=== PATIENT | male | born 1960 ===

== ENCOUNTER 2018-12-17 19:45 | Observation (INO) | payer OTHER ==
[2018-12-17] MEDS ORDERED: Sodium Chloride 0.9% 1,000 ML IV STA (21:12)
--- NOTE | 2018-12-17 21:48 | ED PDOC ---
HPI: Psych/Substance Abuse Time Seen by Provider: 12/17/18 19:58 Chief Complaint (Nursing): Alcohol Ingestion Chief Complaint (Provider): Alcohol Ingestion ED Caveat: Intoxicated History Per: Patient History/Exam Limitations: intoxication Current Symptoms Are (Timing): Still Present Modifying Factor(s): Alcohol Additional Complaint(s): 55 year old male with a history of alcohol abuse presents to the ED via EMS with alcohol intoxication. Patient admits to drinking alcohol today. He also had several episodes of vomiting associated mild upper abdominal pain. Patient also has IDDM, but has not taken insulin in 2 days. Patient is actively vomiting in ED. PMD: none provided Past Medical History Reviewed: Historical Data, Nursing Documentation, Vital Signs Vital Signs: Last Vital Signs Temp 97.4 F L 12/17/18 19:51 Pulse 97 H 12/17/18 19:51 Resp 18 12/17/18 19:51 BP 132/86 12/17/18 19:51 Pulse Ox 99 12/17/18 19:51 - Medical History PMH: Diabetes - Family History Family History: States: Unknown Family Hx - Social History Alcohol: Other (yes, alcohol abuse) - Allergies Allergies/Adverse Reactions: Allergies Allergy/AdvReac Type Severity Reaction Status Date / Time No Known Allergies Allergy Verified 12/17/18 19:50 Review of Systems ROS Statement: Except As Marked, All Systems Reviewed And Found Negative Gastrointestinal: Positive for: Vomiting, Abdominal Pain Physical Exam - Reviewed Nursing Documentation Reviewed: Yes Vital Signs Reviewed: Yes - Physical Exam Appears: Positive for: No Acute Distress Head Exam: Positive for: ATRAUMATIC, NORMOCEPHALIC Skin: Positive for: Normal Color, Warm, Dry Eye Exam: Positive for: Normal appearance, EOMI, PERRL Cardiovascular/Chest: Positive for: Regular Rate, Rhythm Respiratory: Positive for: Normal Breath Sounds. Negative for: Respiratory Distress Gastrointestinal/Abdominal: Positive for: Normal Exam, Soft. Negative for: Tenderness, Guarding Extremity: Positive for: Normal ROM (upper and lower). Negative for: Pedal Edema, Deformity Neurological/Psych: Positive for: Awake, Alert, Oriented - Laboratory Results Result Diagrams: 12/17/18 21:40 12/17/18 21:40 - ECG O2 Sat by Pulse Oximetry: 99 (RA) Pulse Ox Interpretation: Normal Medical Decision Making Medical Decision Making: Time: 2111 Plan: --fluids --alcohol level --Zofran --Pepcid Pt. resting comfortably, abd. soft/nt. Labs noted, hgb 8.5, etoh >250. Will continue IV hydration and repeat labs and assessment when sober. Pt. endorsed to CRISTIANO Montana 11:30 pm. -- Scribe Attestation: Documented by Vera Greer acting as a scribe for Rosana Layton PA-C. Provider Scribe Attestation: All medical record entries made by the Scribe were at my direction and personally dictated by me. I have reviewed the chart and agree that the record accurately reflects my personal performance of the history, physical exam, medical decision making, and the department course for this patient. I have also personally directed, reviewed, and agree with the discharge instructions and disposition. Disposition - Clinical Impression Clinical Impression: Alcohol abuse, Vomiting - Patient ED Disposition Is Patient to be Admitted: Transfer of Care (CRISTIANO Montana) - Disposition Disposition: Transfer of Care (to CRISTIANO Montana at 11:30pm) Disposition Time: 23:25 Condition: STABLE Forms: [employer] (Eritrean)
[2018-12-17 21:51] LABS: BASO % 0.6 % (0.0-2.0); EOS # 0.1 K/uL (0.0-0.7); EOS % 1.8 % (0.0-4.0); HEMOGLOBIN 8.2 g/dL (12.0-18.0); LYMPH % 26.4 % (20.0-40.0); MEAN CELL VOLUME 88.7 fl (80.0-94.0); MEAN CORPUSCULAR HEMOGLOBIN 29.1 pg (27.0-31.0); MEAN CORPUSCULAR HGB CONC 32.8 g/dL (33.0-37.0); MEAN PLATELET VOLUME 7.1 fl (7.2-11.7); MONO # 0.3 K/uL (0.0-0.8); NEUT # 2.3 K/uL (1.8-7.0); NEUT % 63.2 % (50.0-75.0); NRBC % 0.1 % (0.0-0.0); RBC 2.84 Mil/uL (4.40-5.90); RED CELL DISTRIBUTION WIDTH 17.2 % (11.5-14.5); WHITE BLOOD COUNT 3.7 K/uL (4.8-10.8)
[2018-12-17 22:07] LABS: ALBUMIN 3.4 g/dL (3.5-5.0); ALT/SGPT 18 U/L (21-72); AST/SGOT 23 U/L (17-59); BLOOD UREA NITROGEN 12 mg/dl (9-20); CALCIUM 8.6 mg/dL (8.4-10.2); GFR NON-AFRICAN AMERICAN > 60; LIPASE 130 U/L (23-300)
--- NOTE | 2018-12-18 00:04 | ED PDOC ---
- Laboratory Results Result Diagrams: 12/17/18 21:40 12/17/18 21:40 Lab Results: Total Bilirubin 0.3 mg/dl (0.2-1.3) 12/17/18 21:40 AST 23 U/L (17-59) 12/17/18 21:40 ALT 18 U/L (21-72) L 12/17/18 21:40 Alkaline Phosphatase 68 U/L (38-126) 12/17/18 21:40 Total Protein 6.9 G/DL (6.3-8.2) 12/17/18 21:40 Albumin 3.4 g/dL (3.5-5.0) L 12/17/18 21:40 Globulin 3.4 gm/dL (2.2-3.9) 12/17/18 21:40 Albumin/Globulin Ratio 1.0 (1.0-2.1) 12/17/18 21:40 Lipase 130 U/L (23-300) 12/17/18 21:40 - ECG O2 Sat by Pulse Oximetry: 99 (RA) Medical Decision Making Medical Decision Making: Pt care assumed from Cherise Layton at [id number]; the patient was evaluated by myself and found to be nearing sobriety but with difuse abdominal pain A CT Abd and Pelvis with IV Conrast was ordered 0005- A discussion was had with the patient along with the neon technician to explain the rationale underlying the study as well as the risks and benefits of the study. The patient repeated back his understanding of the conversation, the procedure and the underlying rationale to the satisfaction of the provider and the operations and maintenance technician 01:36 CT abd/pelvis Bilateral basilar hypoventilatory pulmonary changes. Moderate hiatal hernia. Moderate cardiomegaly. Mild enlarged retroperitoneal lymph nodes with the largest measuring 1.3 cm. Mildly enlarged bilateral pelvic lymph nodes with the largest measuring 1.6 cm. Mildly enlarged bilateral inguinal lymph nodes with the largest measuring 2.7 cm. Mildly hyperdense material is noted in the proximal aspect of the sigmoid colon. Uncomplicated colonic diverticulosis. Mild changes of central mesenteric panniculitis. Cholelithiasis without acute cholecystitis. Distended bladder. Mild bilateral fullness of the collecting systems. The liver is of uniform attenuation without mass or defect. There is no intra or extrahepatic biliary ductal dilatation. The spleen is normal. The pancreas is of normal contour and attenuation characteristics. There is no evidence of adrenal mass. Both kidneys demonstrate prompt and equal nephrograms. The kidneys are normal in size, shape and configuration. There is no evidence of renal or ureteral mass. No renal or ureteral calculi are identified. No evidence for appendicitis. There is no bowel wall thickening. No evidence for small or large bowel obstruction. There is no evidence of intrinsic or extrinsic bladder mass. Images of the lung bases show no evidence of pleural or parenchymal mass. There are no pleural effusions. The bony structures are free of lytic or blastic lesions. IMPRESSION: Bilateral basilar hypoventilatory pulmonary changes. Moderate hiatal hernia. Moderate cardiomegaly. Mild enlarged retroperitoneal lymph nodes with the largest measuring 1.3 cm. Mildly enlarged bilateral pelvic lymph nodes with the largest measuring 1.6 cm. Mildly enlarged bilateral inguinal lymph nodes with the largest measuring 2.7 cm. Mildly hyperdense material is noted in the proximal aspect of the sigmoid colon. This may represent contrast administration or can be secondary to the presence of acute/subacute hemorrhagic products in the lumen of the proximal sigmoid. Uncomplicated colonic diverticulosis. Mild changes of central mesenteric panniculitis. Cholelithiasis without acute cholecystitis. Distended bladder. Mild bilateral fullness of the collecting systems. 0200 - based on clinical impression and CT diagnostic, the patient will be transfused and admitted to Tele - consulted with Dr Healy, Hospitalist and the patient will be admitted to his service - type and screen ordered - patient verbally consented to a transfusion; -pt is inebriated but stable 0205 - patient is still showing signs of inebriation and refuses to rakesh consent to a transfusion. Disposition Discussed With : Chris Healy Doctor Will See Patient In The: Hospital Counseled Patient/Family Regarding: Diagnosis, Need For Followup - Clinical Impression Clinical Impression: Alcohol abuse, Vomiting, GI bleed, Cholelithiasis - POA Present On Arrival: None - Disposition Disposition: Admitted as In-Patient Disposition Time: 02:20 Condition: FAIR
[2018-12-18] MEDS ORDERED: Sodium Chloride 0.9% 50 ML IV ONE (00:14)
[2018-12-18] MEDS ORDERED: Iohexol 300 100 ML IJ ONE (00:14)
[2018-12-18] MEDS ORDERED: Multivitamin (MVI) 10 ML, Thiamine 100 MG, Folic Acid 1 MG in Sodium Chloride 0.9% 1,00... IV ONE (03:06)
--- NOTE | 2018-12-18 03:23 | CP.PCM.HP ---
<Andrzej Paredes - Last Filed: 12/18/18 04:19> History of Present Illness - History of Present Illness History of Present Illness: 55 y/o M with a PMHx of HTN, DM, b/l lower leg venous insufficiency and alcohol abuse was brought to ED via EMS due to alcohol intoxication. Pt had multiple epi sodes of non-bloody vomiting in the ED. Pt more awake, admits to drinking alcohol before being brought to ED. Pt c/o of mild epigastric pain which improved after medications. Pt also reports constant b/l lower leg pain, pt frequently goes to wound care appointments for dressing change and wound jonny gement. --Pt reports episodes on coffee-ground emesis in the past, last episode 1 or 2 weeks ago. Endoscopy studies have been offered in the past but pt has declined them. Pt also reports chronic Hx of anemia, being offered blood transfusions; however, he declines it and ends up obtaining IV Iron. --Pt reports chronic Hx of diarrhea but denies any blood in or dark/black stools. PMD: none NKDA Meds: unable to recall all of them, non-adherent. PMHx: HTN, DM, b/l lower leg venous insufficiency, alcohol abuse, C Diff infection. PSHX: denied SHx: Pt drinks ~4 beers and 1 bottle of Vodka every other day. Pt smokes cigars once a week. No rec drugs. Pt lives with brother. ED Course: --Vital signs WNL --CBC shows normocytic anemia and leukopenia. CMP was unremarkable, LFT was wnl. --Serum alcohol 272-high. --CT Abdomen: Moderate hiatal hernia. Moderate cardiomegaly. Mild lymphadenopathy in retroperitoneal, bilateral pelvic and bilateral inguinal lymph nodes. Mildly hyperdense material in the proximal aspect of the sigmoid colon which could be secondary to the presence of acute/subacute hemorrhagic products in the lumen of the proximal sigmoid. Uncomplicated colonic diverticulosis. --Famotidine, Zofran, 1L NSS were administered Present on Admission - Present on Admission Any Indicators Present on Admission: No Urinary Catheter: No Decubitus Ulcer Present: No Review of Systems - Constitutional Constitutional: absent: Anorexia, Chills, Fever - EENT Eyes: absent: Blurred Vision Nose/Mouth/Throat: absent: Nasal Congestion, Tongue Swelling, Neck Pain, Neck Mass - Cardiovascular Cardiovascular: Leg Edema. absent: Chest Pain, Dyspnea, Palpitations - Respiratory Respiratory: absent: Cough, Dyspnea, Hemoptysis - Gastrointestinal Gastrointestinal: Abdominal Pain, Diarrhea, Nausea, Vomiting. absent: Bloating - Genitourinary Genitourinary: absent: Dysuria, Hematuria, Urinary Incontinence, Urinary Frequency Past Patient History - Past Social History Alcohol: Other (yes, alcohol abuse) - PSYCHIATRIC Hx Substance Use: No Meds Allergies/Adverse Reactions: Allergies Allergy/AdvReac Type Severity Reaction Status Date / Time No Known Allergies Allergy Verified 12/17/18 19:50 Physical Exam - Constitutional Appears: No Acute Distress - Head Exam Head Exam: ATRAUMATIC, NORMOCEPHALIC - Eye Exam Eye Exam: EOMI - ENT Exam ENT Exam: Mucous Membranes Dry - Neck Exam Neck exam: Positive for: Full Rom, Normal Inspection. Negative for: Meningismus - Respiratory Exam Respiratory Exam: NORMAL BREATHING PATTERN. absent: Decreased Breath Sounds, Rhonchi, Wheezes, Respiratory Distress - Cardiovascular Exam Cardiovascular Exam: REGULAR RHYTHM, +S1, +S2 - GI/Abdominal Exam GI & Abdominal Exam: Normal Bowel Sounds, Soft, Tenderness (epigastric area). absent: Distended, Guarding, Rebound, Rigid - Extremities Exam Extremities exam: Positive for: full ROM, pedal edema Additional comments: Both lower legs are wrapped in dirty malodorous dressings. Presence of diffuse erythematous dermatitis in b/l lower legs. Presence on an ulcer on medial pre- tibial area, and crusted lesion on R medial foot. Results - Vital Signs Recent Vital Signs: Last Vital Signs Temp 98 F 12/18/18 03:04 Pulse 89 12/18/18 03:04 Resp 16 12/18/18 03:04 BP 115/80 12/18/18 03:04 Pulse Ox 98 12/18/18 03:04 - Labs Result Diagrams: 12/17/18 21:40 12/17/18 21:40 Labs: Laboratory Results - last 24 hr 12/17/18 12/17/18 12/17/18 21:40 21:40 21:40 WBC 3.7 L RBC 2.84 L Hgb 8.2 L Hct 25.2 L MCV 88.7 MCH 29.1 MCHC 32.8 L RDW 17.2 H Plt Count 172 MPV 7.1 L Neut % (Auto) 63.2 Lymph % (Auto) 26.4 Weston % (Auto) 8.0 Eos % (Auto) 1.8 Baso % (Auto) 0.6 Neut # (Auto) 2.3 Lymph # (Auto) 1.0 Weston # (Auto) 0.3 Eos # (Auto) 0.1 Baso # (Auto) 0.0 Sodium 141 Potassium 3.9 Chloride 109 H Carbon Dioxide 20 L Anion Gap 16 BUN 12 Creatinine 0.7 L Est GFR ( Amer) > 60 Est GFR (Non-Af Amer) > 60 Random Glucose 106 Calcium 8.6 Total Bilirubin 0.3 AST 23 ALT 18 L Alkaline Phosphatase 68 Total Protein 6.9 Albumin 3.4 L Globulin 3.4 Albumin/Globulin Ratio 1.0 Lipase 130 Alcohol, Quantitative 272 H Blood Type Antibody Screen Crossmatch BBK History Checked 12/18/18 02:10 WBC RBC Hgb Hct MCV MCH MCHC RDW Plt Count MPV Neut % (Auto) Lymph % (Auto) Weston % (Auto) Eos % (Auto) Baso % (Auto) Neut # (Auto) Lymph # (Auto) Weston # (Auto) Eos # (Auto) Baso # (Auto) Sodium Potassium Chloride Carbon Dioxide Anion Gap BUN Creatinine Est GFR ( Amer) Est GFR (Non-Af Amer) Random Glucose Calcium Total Bilirubin AST ALT Alkaline Phosphatase Total Protein Albumin Globulin Albumin/Globulin Ratio Lipase Alcohol, Quantitative Blood Type B POSITIVE Antibody Screen Negative Crossmatch See Detail BBK History Checked No verified bt Assessment & Plan - Assessment and Plan (Free Text) Assessment: 55 y/o M with a PMHx of HTN, DM, b/l lower leg venous insufficiency and alcohol abuse is admitted for evaluation and management of alcohol intoxication, anemia, and CT findings of GI hemorrhage. --CT Abdomen: Moderate hiatal hernia. Moderate cardiomegaly. Mild lymphadenopathy in retroperitoneal, bilateral pelvic and bilateral inguinal lymph nodes. Mildly hyperdense material in the proximal aspect of the sigmoid colon which could be secondary to the presence of acute/subacute hemorrhagic products in the lumen of the proximal sigmoid. Uncomplicated colonic diverticulosis. PLAN: >GI Hemorrhage --VS stable, Hgb 8.2-low, normal LFT. --Hx of upper GI bleeding and alcohol abuse --Blood transfusion declined by patient, form signed by bedside. --NPO --QT prolongation on EKG at ED: Restrict Zofran/metoclopramide use. --TRIMETHOBENZAMIDE (Tigan) ordered for nausea. --GI consult, Dr Ramey. --F/U Repeat CBC, Cdiff screen and FOBT. >Alcohol intoxication/abuse --Increased serum alcohol at ED, normal LFT's. --Observe for alcohol withdrawal syndrome --Banana Bag --Librium 25mg Q8H --[facility] protocol --Ativan IV PRN --F/U repeat alcohol level. >Normocytic anemia --Hgb 8.2-low, MCV 88.7, RDW 17.2 --Possible causes: acute GI bleeding, Malnutrition/vitamin or mineral deficiencies, Hx of alcoholism, combined etiology. --Blood transfusion declined. --Anemia work-up ordered: iron studies, vitamin B12, folate, retic count. >DM2 --Not sure about diagnosis, since pt --Hemoglobin A1c ordered. --Accucheck ACHS --ISS and hypoglycemia protocol >HTN --Monitor vital signs >B/L Lower Leg Venous Insufficiency --Wound care nurse referral ordered. >DVT prophylaxis --NO SCD due to lower leg dermatitis --NO anticoagulation since possible GI bleeding Case discussed with Negni Paz PGY-2 - Date & Time Date: 12/18/18 Time: 03:00 <Chris Healy - Last Filed: 12/18/18 06:34> Results - Vital Signs Recent Vital Signs: Last Vital Signs Temp 97.3 F L 12/18/18 03:34 Pulse 84 12/18/18 03:34 Resp 17 12/18/18 03:34 BP 146/79 12/18/18 03:34 Pulse Ox 96 12/18/18 03:34 - Labs Result Diagrams: 12/18/18 05:20 12/18/18 05:20 Labs: Laboratory Results - last 24 hr 12/17/18 12/17/18 12/17/18 21:40 21:40 21:40 WBC 3.7 L RBC 2.84 L Hgb 8.2 L Hct 25.2 L MCV 88.7 MCH 29.1 MCHC 32.8 L RDW 17.2 H Plt Count 172 MPV 7.1 L Neut % (Auto) 63.2 Lymph % (Auto) 26.4 Weston % (Auto) 8.0 Eos % (Auto) 1.8 Baso % (Auto) 0.6 Neut # (Auto) 2.3 Lymph # (Auto) 1.0 Weston # (Auto) 0.3 Eos # (Auto) 0.1 Baso # (Auto) 0.0 PT INR Sodium 141 Potassium 3.9 Chloride 109 H Carbon Dioxide 20 L Anion Gap 16 BUN 12 Creatinine 0.7 L Est GFR ( Amer) > 60 Est GFR (Non-Af Amer) > 60 Random Glucose 106 Calcium 8.6 Total Bilirubin 0.3 AST 23 ALT 18 L Alkaline Phosphatase 68 Total Protein 6.9 Albumin 3.4 L Globulin 3.4 Albumin/Globulin Ratio 1.0 Lipase 130 Alcohol, Quantitative 272 H Blood Type Antibody Screen Crossmatch BBK History Checked 12/18/18 12/18/18 02:10 05:20 WBC RBC Hgb Hct MCV MCH MCHC RDW Plt Count MPV Neut % (Auto) Lymph % (Auto) Weston % (Auto) Eos % (Auto) Baso % (Auto) Neut # (Auto) Lymph # (Auto) Weston # (Auto) Eos # (Auto) Baso # (Auto) PT 11.2 INR 1.0 Sodium Potassium Chloride Carbon Dioxide Anion Gap BUN Creatinine Est GFR ( Amer) Est GFR (Non-Af Amer) Random Glucose Calcium Total Bilirubin AST ALT Alkaline Phosphatase Total Protein Albumin Globulin Albumin/Globulin Ratio Lipase Alcohol, Quantitative Blood Type B POSITIVE Antibody Screen Negative Crossmatch See Detail BBK History Checked No verified bt Attending/Attestation - Attestation I have personally seen and examined this patient.: Yes I have fully participated in the care of the patient.: Yes I have reviewed all pertinent clinical information: Yes Notes (Text): 12/18/18 06:10 I saw, examined and discussed this patient with Dr Paredes. I agree with the assessment and plan outlined. This is a 55 years old male with hx of Alcohol abuse, Chronic Stasis dermatitis of the lower extremities, IDDM, recent C Difficile (treated with Oral vancomycina and Flagyl), who was brought to the ED because of Alcohol intoxication and vomiting. He complains of epigastric pain and painful lower extremities. No hematemesis at this time although he refers to previous episodes of the same. No melena nor blood visible in stool. CT Abdomen/Pelvis showed Diverticulosis, Cholelithisasis and mild hyperdense material in the proximal sigmoid colon which may represent contrast adm inistration or can be secondary to the presence of acute/subacute hemorrhagic products in the lumen of the proximal sigmoid. We will consider that the patient has GI bleed, and will only order medication by mouth, consult gastroenterology Dr Ramey for possible Endoscopy and colonoscopy. H&H Q6 The patient states that he will refuse endoscopy Continue Protonix and IV Fluid Alcohol Intoxication and prevention of withdrawal with Librium, IV Ativan for agitation, thiamine, Folic Acid and multivitamin with a [facility] protocol Anemia work up and treatment Diarrhea will be investigated with C Difficile Toxins and antigen Chronic Stasis Dermatitis at both lower extremities will be attended to by the wound care nurse Chris Healy MD
[2018-12-18] MEDS ORDERED: Trimethobenzamide 200 mg/2 mL Inj IM PRN (03:58)
[2018-12-18] MEDS ORDERED: Glucagon Recombinant 1 mg Inj IM PRN (04:11)
[2018-12-18] MEDS ORDERED: Dextrose 50% SYRINGE Inj (50 ml) IV PRN (04:11)
[2018-12-18 06:06] LABS: HEMOGLOBIN 8.7 g/dL (12.0-18.0); MEAN CELL VOLUME 86.9 fl (80.0-94.0); MEAN CORPUSCULAR HEMOGLOBIN 29.1 pg (27.0-31.0); MEAN CORPUSCULAR HGB CONC 33.5 g/dL (33.0-37.0); RBC 2.97 Mil/uL (4.40-5.90); RED CELL DISTRIBUTION WIDTH 17.1 % (11.5-14.5)
[2018-12-18 06:10] LABS: BLOOD UREA NITROGEN 9 mg/dl (9-20); CALCIUM 8.5 mg/dL (8.4-10.2); GFR NON-AFRICAN AMERICAN > 60
[2018-12-18 06:12] LABS: IRON 33 ug/dL (49-181)
[2018-12-18 06:21] LABS: % IRON SATURATION 13 % (20-55); TOTAL IRON BINDING CAPACITY 263 ug/dL (250-450)
[2018-12-18] MEDS: Insulin Lispro (humaLOG) 100 Units/ml Inj SC SCH ×2 (06:28→12:42)
[2018-12-18 06:38] LABS: FERRITIN 40.8 ng/Ml (17.9-464)
[2018-12-18 08:36] VITALS: RESP 20
--- NOTE | 2018-12-18 08:38 | CT ---
Date of service: 12/18/2018 PROCEDURE: CT Abdomen and Pelvis with contrast HISTORY: r/o gi bleed COMPARISON: None. TECHNIQUE: Intravenous contrast dose: 95 cc Omnipaque 300 Radiation dose: Total exam DLP = 576.63 mGy-cm. This CT exam was performed using one or more of the following dose reduction techniques: Automated exposure control, adjustment of the mA and/or kV according to patient size, and/or use of iterative reconstruction technique. FINDINGS: LOWER THORAX: Thickened distal esophagus likely esophagitis without focal lesion. LIVER: Unremarkable. No gross lesion or ductal dilatation. GALLBLADDER AND BILE DUCTS: Cholelithiasis without CT evidence of acute cholecystitis. PANCREAS: Unremarkable. No gross lesion or ductal dilatation. SPLEEN: Unremarkable. ADRENALS: Unremarkable. No mass. KIDNEYS AND URETERS: Unremarkable. No hydronephrosis. No solid mass. VASCULATURE: Unremarkable. No aortic aneurysm. No atherosclerotic calcification or mural plaque present. BOWEL: Unremarkable. No obstruction. No gross mural thickening. APPENDIX: Normal appendix. PERITONEUM: Unremarkable. No free fluid. No free air. LYMPH NODES: Inguinal lymphadenopathy bilaterally the extent is not visible on the current study. Substantially smaller pelvic lymph nodes likely infectious/inflammatory. BLADDER: Distended urinary bladder without focal abnormality. REPRODUCTIVE: Unremarkable. BONES: No acute fracture. OTHER FINDINGS: None. IMPRESSION: Bilateral inguinal lymphadenopathy etiology uncertain. Thickening of the distal esophagus likely esophagitis. Cholelithiasis without CT evidence of acute cholecystitis. Concordant results (preliminary interpretation) provided by [employer]. Procedure Completed: 00:25. Preliminary Report: Interpreted and electronically signed: 01:37. Final Interpretation: 08:34.
--- NOTE | 2018-12-18 12:18 | CP.PCM.DIS ---
Provider - Provider Date of Admission: 12/18/18 02:12 Attending physician: Chris Healy Consults: 12/18/18 02:12 Gastroenterology Consult Stat Comment: Consulting Provider: Richard Ramey Consulting Physician: Richard Ramey Reason for Consult: GI bleed 12/18/18 03:49 Nursing Referral for Wound Care Routine Comment: Physician Instructions: Reason For Exam: Bilateral lower leg venous stasis dermatitis 12/18/18 05:13 Nursing Referral for Wound Care Routine Comment: Physician Instructions: Reason For Exam: please evaluate BLE, sacral, and perineal area. Social Work Referral Routine Comment: alcohol abuse Physician Instructions: Reason For Exam: as per admission assessment Time Spent in preparation of Discharge (in minutes): 20 Diagnosis - Discharge Diagnosis (1) Diabetes mellitus type 2 in nonobese Status: Chronic (2) Alcohol abuse Status: Chronic (3) Normocytic anemia Status: Chronic (4) Lower extremity venous stasis Status: Chronic (5) HTN (hypertension) Status: Chronic Hospital Course - Lab Results Lab Results: Most Recent Lab Values WBC 3.0 K/uL (4.8-10.8) L 12/18/18 05:20 RBC 2.97 Mil/uL (4.40-5.90) L 12/18/18 05:20 Hgb 8.7 g/dL (12.0-18.0) L 12/18/18 05:20 Hct 25.8 % (35.0-51.0) L 12/18/18 05:20 MCV 86.9 fl (80.0-94.0) 12/18/18 05:20 MCH 29.1 pg (27.0-31.0) 12/18/18 05:20 MCHC 33.5 g/dL (33.0-37.0) 12/18/18 05:20 RDW 17.1 % (11.5-14.5) H 12/18/18 05:20 Plt Count 156 K/uL (130-400) 12/18/18 05:20 MPV 7.1 fl (7.2-11.7) L 12/17/18 21:40 Neut % (Auto) 63.2 % (50.0-75.0) 12/17/18 21:40 Lymph % (Auto) 26.4 % (20.0-40.0) 12/17/18 21:40 Whitley % (Auto) 8.0 % (0.0-10.0) 12/17/18 21:40 Eos % (Auto) 1.8 % (0.0-4.0) 12/17/18 21:40 Baso % (Auto) 0.6 % (0.0-2.0) 12/17/18 21:40 Neut # (Auto) 2.3 K/uL (1.8-7.0) 12/17/18 21:40 Lymph # (Auto) 1.0 K/uL (1.0-4.3) 12/17/18 21:40 Whitley # (Auto) 0.3 K/uL (0.0-0.8) 12/17/18 21:40 Eos # (Auto) 0.1 K/uL (0.0-0.7) 12/17/18 21:40 Baso # (Auto) 0.0 K/uL (0.0-0.2) 12/17/18 21:40 Retic Count 2.4 % (0.5-1.5) H 12/18/18 05:20 PT Cancelled 12/18/18 05:20 INR Cancelled 12/18/18 05:20 APTT Cancelled 12/18/18 05:20 Sodium 144 mmol/l (132-148) 12/18/18 05:20 Potassium 4.4 MMOL/L (3.6-5.0) 12/18/18 05:20 Chloride 113 mmol/L (98-107) H 12/18/18 05:20 Carbon Dioxide 22 mmol/L (22-30) 12/18/18 05:20 Anion Gap 13 (10-20) 12/18/18 05:20 BUN 9 mg/dl (9-20) 12/18/18 05:20 Creatinine 0.7 mg/dl (0.8-1.5) L 12/18/18 05:20 Est GFR ( Amer) > 60 12/18/18 05:20 Est GFR (Non-Af Amer) > 60 12/18/18 05:20 POC Glucose (mg/dL) 75 mg/dL (65-110) 12/18/18 10:40 Random Glucose 97 mg/dL (75-110) 12/18/18 05:20 Hemoglobin A1c 5.6 % (4.2-6.5) 12/18/18 05:20 Calcium 8.5 mg/dL (8.4-10.2) 12/18/18 05:20 Iron 33 ug/dL (49-181) L 12/18/18 05:20 TIBC 263 ug/dL (250-450) 12/18/18 05:20 % Saturation 13 % (20-55) L 12/18/18 05:20 Ferritin 40.8 ng/Ml (17.9-464) 12/18/18 05:20 Total Bilirubin 0.3 mg/dl (0.2-1.3) 12/17/18 21:40 AST 23 U/L (17-59) 12/17/18 21:40 ALT 18 U/L (21-72) L 12/17/18 21:40 Alkaline Phosphatase 68 U/L (38-126) 12/17/18 21:40 Ammonia 14 umol/L (9-33) 12/18/18 05:20 Total Protein 6.9 G/DL (6.3-8.2) 12/17/18 21:40 Albumin 3.4 g/dL (3.5-5.0) L 12/17/18 21:40 Globulin 3.4 gm/dL (2.2-3.9) 12/17/18 21:40 Albumin/Globulin Ratio 1.0 (1.0-2.1) 12/17/18 21:40 Lipase 130 U/L (23-300) 12/17/18 21:40 Vitamin B12 333 pg/mL (239-931) 12/18/18 05:20 Alcohol, Quantitative 170 mg/dl (0-10) H 12/18/18 05:20 HIV-1 Ab Rapid Screen Non reactive (NON REAC) 12/18/18 05:20 Blood Type B POSITIVE 12/18/18 02:10 Blood Type Confirm B POSITIVE 12/18/18 05:20 Antibody Screen Negative 12/18/18 02:10 Crossmatch See Detail 12/18/18 02:10 BBK History Checked No verified bt 12/18/18 02:10 - Hospital Course Hospital Course: 55 yo male with PMH of HTN, DM, B/L lower Leg venous insufficiency and alcohol abuse was brought to ED via EMS due to alcohol intoxication. Patient was admitted to telemetry for further evaluation. ED Course: Vital signs WNL CBC shows normocytic anemia and leukopenia. CMP was unremarkable, LFT was wnl. Serum alcohol 272-high. CT Abdomen: Moderate hiatal hernia. Moderate cardiomegaly. Mild lymphadenopathy in retroperitoneal, bilateral pelvic and bilateral inguinal lymph nodes. Mildly hyperdense material in the proximal aspect of the sigmoid colon which could be secondary to the presence of acute/subacute hemorrhagic products in the lumen of the proximal sigmoid. Uncomplicated colonic diverticulosis. Famotidine, Zofran, 1L NSS were administered During his stay patient was treated for Alcohol intoxication. Patient recieved Librium 25mg Q8h, CIWA protocol, Ativan PRN, Tigan. Due to his low Hgb and hct patient and questionable GI bleed, patient received venofer Patient DM and HTN also were monitored and managed Patient lower extremeties were treated by podiatry and wound care. Patient blood lab were wnl except for normocytic anemia and high alcohol concentration. Patient seen and examined at bedside today. Patient have no acute distress overnight. slept well overnight. Patient feel better, no sign or symptoms of intoxication or withdrawal. Patient is comfortable to be discharged. Patient medication were reconciled and sent to his pharmacy Patient sent on insulin R 12 AC Discharge Exam - Head Exam Head Exam: ATRAUMATIC, NORMAL INSPECTION, NORMOCEPHALIC - Eye Exam Eye Exam: EOMI, Normal appearance, PERRL Pupil Exam: NORMAL ACCOMODATION, PERRL - Respiratory Exam Respiratory Exam: Clear to PA & Lateral, NORMAL BREATHING PATTERN, UNREMARKABLE - Cardiovascular Exam Cardiovascular Exam: REGULAR RHYTHM, +S1, +S2 - GI/Abdominal Exam GI & Abdominal Exam: Normal Bowel Sounds, Unremarkable - Extremities Exam Additional comments: B/L Lower extremities edema, with ulceration, charcot foot noted - Back Exam Back exam: NORMAL INSPECTION - Neurological Exam Neurological exam: Alert, CN II-XII Intact, Oriented x3 - Skin Skin Exam: Dry, Intact, Normal Color, Warm Discharge Plan - Discharge Medications Prescriptions: Cholecalciferol [Vitamin D] 1,000 iu PO DAILY #30 tab Ferrous Sulfate 325 mg PO BID #60 tablet Folic Acid 1 mg PO DAILY #30 tab Furosemide [Lasix] 20 mg PO DAILY #30 tablet Gabapentin 300 mg PO BID #60 capsule Insulin Regular [HumuLIN R] 12 units IV AC #1 vial - Follow Up Plan Condition: FAIR Disposition: HOME/ ROUTINE
[2018-12-18 12:43] VITALS: BP 139/75; TEMP 98; O2SAT 99
[2018-12-18 12:48] LABS: FOLATE 6.4 ng/mL
[2018-12-18 13:52] VITALS: PULSE 84
--- NOTE | 2018-12-18 22:27 | CARD ---
APPROVED REPORT Date of service: 12/18/2018 EKG Measurement Heart [id number] <Conclusion> Normal sinus rhythm Prolonged QT Abnormal ECG
[2018-12-19] MEDS ORDERED: Pantoprazole 40 mg EC Tab PO SCH (09:00)
--- NOTE | 2018-12-21 08:38 | CON ---
REFERRED BY: Dr. Healy. HISTORY OF PRESENT ILLNESS: This is a 58-year-old gentleman with a history of alcohol abuse. He was found unconscious and brought to the hospital yesterday afternoon. He was referred for GI evaluation with a hemoglobin of 8.2. The patient is wide awake now and able to give a good history. He denies any nausea, vomiting, diaphoresis, or dysphagia. He has minimal abdominal discomfort. He has not had any bowel movements today. He gives a long history of having bouts of diarrhea. He mentioned that he has had Clostridium difficile infections in the past. He also gives a story that he had an upper endoscopy a little over a year ago and was told that he had esophagitis, inflammation of the esophagus, at that time. He says he has never had a colonoscopy. He has been treated for the C. difficile multiple times. He has been on multiple antibiotics because of severe cellulitis of his bilateral lower extremities both of which were wrapped. MEDICATIONS: He was not taking any medications at home. ALLERGIES: HE HAS NO KNOWN DRUG ALLERGIES. PAST MEDICAL HISTORY: As per the HPI. He said he is also a diabetic, but has not been taking his insulin. He has a history of alcohol abuse and cellulitis. Unclear if he has any known history of liver disease. SURGICAL HISTORY: Noncontributory. FAMILY HISTORY: Noncontributory. SOCIAL HISTORY: He does drink heavily. Denies tobacco or drug use. PHYSICAL EXAMINATION: GENERAL: A well-developed, well-nourished male. Awake, alert, and oriented x3, in no acute distress. VITAL SIGNS: At the present time, his vital signs are stable. He is afebrile. ABDOMEN: Soft with good bowel sounds, nontender, nondistended. There is no appreciable hepatosplenomegaly on exam. LABORATORY DATA: Of note, his hemoglobin on admission last night was 8.2, this morning it was 8.7. The first white blood cell count of 3, platelet count is normal. His SMA-7 was essentially unremarkable except for modestly elevated glucose, yesterday on admission 133, but this morning it was 75. His LFTs were within normal limits although his albumin was a little bit low at 3.4. His lipase is normal. B12 is 333. His alcohol level was elevated on admission as well as this morning. He did have a CT of the abdomen and pelvis last night, essentially unremarkable except for some bilateral inguinal lymphadenopathy that was noted as well as some asymptomatic cholelithiasis and some thickening of the esophagus and is suspicious for underlying esophagitis. IMPRESSION AND PLAN: A 58-year-old gentleman with a history of alcohol abuse who is referred for gastroenterology evaluation with a low hemoglobin. The patient himself has refused blood transfusion since admission here. Fortunately, his hemoglobin has been stable though. At this point in time, I do not see a need to holley him to any type of blood transfusions. He is receiving iron infusions instead. I would keep him on a daily proton pump inhibitor, which I have ordered. I will advance his diet and repeat his hemoglobin in the morning. I will follow along with you. Diomedes Fernandez MD
== END 2018-12-18 16:15 | disposition home or self-care (01) ==
LOC: H.ER 19:45 → EDBD 12-18 02:12 → H.ERHOLD 12-18 02:12 → INTOOBSV 12-18 02:12 → H.TEL 12-18 03:25
PROVIDERS: ADMIT Internal Medicine; ATTEND Internal Medicine
DX: F10.129 Alcohol abuse with intoxication, unspecified (principal); Y90.8 Blood alcohol level of 240 mg/100 ml or more; E61.1 Iron deficiency; F17.290 Nicotine dependence, other tobacco product, uncomplicated; I51.7 Cardiomegaly; I10 Essential (primary) hypertension; D63.8 Anemia in other chronic diseases classified elsewhere; E11.40 Type 2 diabetes mellitus with diabetic neuropathy, unspecified; I87.2 Venous insufficiency (chronic) (peripheral); I87.8 Other specified disorders of veins; K44.9 Diaphragmatic hernia without obstruction or gangrene; K57.30 Diverticulosis of large intestine without perforation or abscess without bleeding; K80.20 Calculus of gallbladder without cholecystitis without obstruction; K92.2 Gastrointestinal hemorrhage, unspecified; L03.90 Cellulitis, unspecified; Z79.4 Long term (current) use of insulin; K20.9 Esophagitis, unspecified; Z91.14 Patient's other noncompliance with medication regimen
CPT/HCPCS: 36415; 74177; 80048; 80053; 80320; 82140; 82607; 82728; 82746; 82948; 83036; 83540; 83550; 83690; 85025; 85027; 85044; 86850; 86900; 86920; 87390; 93005; 96365; 96375; 99285; C9113; G0378; J1756; J2405; J3411; J7030; Q9967